=== PATIENT | female | born 1965 | race Caucasian/White ===

== ENCOUNTER 2023-12-21 04:30 | Day surgery (SDC) | payer BC ==
[2023-12-18 08:49] VITALS: BMI 35.0
[2023-12-21 08:11] VITALS: TEMP 97.6
[2023-12-21 08:38] VITALS: RESP 18
[2023-12-21 09:01] VITALS: BP 134/60; PULSE 76
== END 2023-12-21 08:50 | disposition home or self-care (01) ==
LOC: JASU-ENDO 04:30
PROVIDERS: ATTEND Internal Medicine Gastroenterology
PROC: 0DJD8ZZ Inspection of Lower Intestinal Tract, Via Natural or Artificial Opening Endoscopic (ICD-10-PCS; principal; 2023-12-21 07:30)
DX: Z12.11 Encounter for screening for malignant neoplasm of colon (principal); K64.8 Other hemorrhoids; K57.30 Diverticulosis of large intestine without perforation or abscess without bleeding